=== PATIENT | female | born 1970 | race Caucasian/White ===

== ENCOUNTER 2017-03-15 17:02 | Emergency (ER) | payer BC ==
--- NOTE | 2017-03-15 17:27 | PDOC ---
Rapid Medical Evaluation Time Seen by Provider: 03/15/17 17:24 Medical Evaluation: Allergies Allergy/AdvReac Type Severity Reaction Status Date / Time aspirin Allergy Verified 03/15/17 17:25 ibuprofen Allergy Verified 03/15/17 17:25 03/15/17 17:25 I have performed a brief in-person evaluation of this patient. The patient presents with a chief complaint of: cough w/ pleuritic CP and SOB x 1 week. H/o HTN, former smoker Pertinent physical exam findings:stable w/ chest/lungs clear I have ordered the following:labs/cxr/ekg The patient will proceed to the ED for further evaluation. 03/15/17 17:28
[2017-03-15 17:29] VITALS: BP 131/83; PULSE 76; TEMP 97.9; BMI 48.1
[2017-03-15] MEDS ORDERED: ALBUTEROL SO4 0.083% IH SOL 2.5 MG/3 ML VIAL.NEB. NEB ONE ×4 (17:54→19:47)
--- NOTE | 2017-03-15 17:55 | PDOC ---
History of Present Illness - General History Source: Patient Exam Limitations: No Limitations - History of Present Illness Initial Comments: 03/15/17 18:17 The patient is a 47 year old female with a significant PMH of HTN and anemia who presents to the emergency department after being sent by Dr. Light with shortness of breath and a dry cough beginning approximately 1 week ago. The patient reports dyspnea with minimal exertion and a dry cough over the past week, both of which are aggravated by inspiration and alleviated by lying down. She reports her cough was productive last week for phlegm and some blood spotting. She notes receiving a CXR and 2 flu swabs over the past week by Dr. Ordoñez and Dr. Light, which all resulted negative. She was sent by Dr. Light today for rule out pneumonia. The patient denies chest pain, headache and dizziness. Denies fever, chills, nausea, vomit, diarrhea and constipation. Denies dysuria, frequency, urgency and hematuria. Allergies: NKA Past surgical history: Cholecystectomy. Left knee arthroscopy. Social history: Former smoker. No reported alcohol or drug use. PCP: Dr. Light ENT: Dr. Ordoñez <Blue Barker - Last Filed: 03/15/17 18:41> <Gilma Gill - Last Filed: 03/18/17 08:42> - General Chief Complaint: Shortness of Breath Stated Complaint: PCP SENT/SHORTNESS OF BREATH Time Seen by Provider: 03/15/17 17:24 Past History <Blue Barker - Last Filed: 03/15/17 18:41> - Past Medical History Anemia: Yes Asthma: No Cancer: No Cardiac Disorders: No CVA: No COPD: No CHF: No DVT: No Dementia: No Diabetes: No GI Disorders: No Disorders: Yes (H/O RENAL COLIC) HTN: Yes Hypercholesterolemia: No Liver Disease: No Seizures: No Thyroid Disease: No - Surgical History Abdominal Surgery: No Appendectomy: No Cardiac Surgery: No Cholecystectomy: Yes Lung Surgery: No Neurologic Surgery: No Orthopedic Surgery: Yes (arthroscopy left knee) - Immunization History Td Vaccination: Yes Immunization Up to Date: Yes - Suicide/Smoking/Psychosocial Hx Smoking Status: No Smoking History: Former smoker Years of Tobacco Use: 0 Have you smoked in the past 12 months: No Number of Cigarettes Smoked Daily: 0 If you are a former smoker, when did you quit?: 2000 Cigars Per Day: 0 Information on smoking cessation initiated: No Hx Alcohol Use: No Drug/Substance Use Hx: No Substance Use Type: None Hx Substance Use Treatment: No <Gilma Gill - Last Filed: 03/18/17 08:42> - Past Medical History Allergies/Adverse Reactions: Allergies Allergy/AdvReac Type Severity Reaction Status Date / Time aspirin Allergy Verified 03/15/17 17:25 ibuprofen Allergy Verified 03/15/17 17:25 Home Medications: Ambulatory Orders Guaifenesin AC [Robitussin AC] 10 ml PO Q8H #200 ml MDD 30mL 01/25/16 Prednisone [Deltasone -] 40 mg PO DAILY #8 tablet 03/15/17 Review of Systems - Review of Systems Able to Perform ROS?: Yes Comments:: 03/15/17 18:17 GENERAL/CONSTITUTIONAL: No fever or chills. No weakness. HEAD, EYES, EARS, NOSE AND THROAT: No change in vision. No ear pain or discharge. No sore throat. CARDIOVASCULAR: (+) Dyspnea with exertion. No chest pain or shortness of breath. RESPIRATORY: (+) Dry cough. No wheezing or hemoptysis. GASTROINTESTINAL: No nausea, vomiting, diarrhea or constipation. GENITOURINARY: No dysuria, frequency, or change in urination. MUSCULOSKELETAL: No joint or muscle swelling or pain. No neck or back pain. SKIN: No rash NEUROLOGIC: No headache, vertigo, loss of consciousness, or change in strength/ sensation. ENDOCRINE: No increased thirst. No abnormal weight change. HEMATOLOGIC/LYMPHATIC: No anemia, easy bleeding, or history of blood clots. ALLERGIC/IMMUNOLOGIC: No hives or skin allergy. <Blue Barker - Last Filed: 03/15/17 18:41> *Physical Exam - Vital Signs Last Vital Signs Temp Pulse Resp BP Pulse Ox 97.9 F 76 17 131/83 97 03/15/17 17:25 03/15/17 17:25 03/15/17 17:25 03/15/17 17:25 03/15/17 17:25 <Blue Barker - Last Filed: 03/15/17 18:41> - Vital Signs Last Vital Signs Temp Pulse Resp BP Pulse Ox 97.9 F 76 17 131/83 97 03/15/17 17:25 03/15/17 17:25 03/15/17 17:25 03/15/17 17:25 03/15/17 17:25 - Physical Exam Comments: GENERAL: Awake, alert, and fully oriented, in no acute distress HEAD: No signs of trauma. No sinus tenderness EYES: PERRLA, EOMI, sclera anicteric, conjunctiva clear ENT: Auricles normal inspection, hearing grossly normal, nares patent, oropharynx clear without exudates. Moist mucosa NECK: Normal ROM, supple, no lymphadenopathy, JVD, or masses LUNGS: Dec air entry B/L, scattered rhonchi R anterior lung parikh. Intermittent dry hacking cough. HEART: Regular rate and rhythm, normal S1 and S2, no murmurs, rubs or gallops ABDOMEN: Soft, nontender, normoactive bowel sounds. No guarding, no rebound. No masses EXTREMITIES: Normal range of motion, no edema. No clubbing or cyanosis. No cords, erythema, or tenderness NEUROLOGICAL: Cranial nerves II through XII grossly intact. Normal speech, normal gait SKIN: Warm, Dry, normal turgor, no rashes or lesions noted. <Gilma Gill - Last Filed: 03/18/17 08:42> Heart Score/ECG Review #1 03/15/17 18:41 Vent rate 76 bpm Normal sinus rhythm. Normal ECG. <Blue Barker - Last Filed: 03/15/17 18:41> ED Treatment Course - LABORATORY CBC & Chemistry Diagram: 03/15/17 18:00 03/15/17 18:00 - Medications Given in the ED: ED Medications Discontinued Medications Generic Name Dose Route Start Last Admin Trade Name Freq PRN Reason Stop Dose Admin Albuterol Sulfate 1 amp 03/15/17 17:54 03/15/17 18:06 Ventolin 0.083% Nebulizer Soln - NEB 03/15/17 17:55 1 amp ONCE ONE Administration <Blue Barker - Last Filed: 03/15/17 18:41> - LABORATORY CBC & Chemistry Diagram: 03/15/17 18:00 03/15/17 18:50 <Gilma Gill - Last Filed: 03/18/17 08:42> Medical Decision Making - Medical Decision Making 03/15/17 19:[address] Garcia at shift change. She was sent by Dr. Light for evaluation for recent cough and SOB, negative flu test and negative CXR as outpatient. CXR obtained in ED to r/o pna, no focal consolidation. Treated with nebs and steroids for symptoms, which are more consistent with viral URI. Awaiting CT chest without contrast to r/o occult pna. PE is unlikely based on clinical presentation, much more likely that this is related to URI, as she has significant chest and nasal congestion, post-nasal drip. Likely DC home. <Gilma Gill - Last Filed: 03/18/17 08:42> *DC/Admit/Observation/Transfer - Attestations Scribe Attestion: 03/15/17 18:17 Documentation prepared by Blue Barker, acting as durable medical equipment technician for Gilma Gill MD. <Blue Barker - Last Filed: 03/15/17 18:41> <Gilma Gill - Last Filed: 03/18/17 08:42> Diagnosis at time of Disposition: Cough - Discharge Dispostion Disposition: HOME - Prescriptions Prescriptions: Prednisone [Deltasone -] 40 mg PO DAILY #8 tablet - Referrals Referrals: Cuauhtemoc Light MD [Primary Care Provider] - - Patient Instructions Printed Discharge Instructions: DI for Cough -- Adult Additional Instructions: You were seen in the ER on recommendation of your primary care doctor. You had blood work and a chest XR as well as a CT of your chest. There is no sign of active infection/pneumonia at this time. You do have a nodule which requires follow up to make sure that it's not changing over time. Please call your doctor tomorrow for an appointment within the next few days. Take the prednisone (steroids) as prescribed and return to the ER if your symptoms are worsening. - Post Discharge Activity
[2017-03-15 18:12] LABS: BASO % 1.1 % (0-2.0); EOS % 3.2 % (0-4.5); HEMATOCRIT 38.3 % (32.4-45.2); HEMOGLOBIN 12.9 GM/dL (10.7-15.3); LYMPH % 28.3 % (8-40); MCH 26.6 pg (25.7-33.7); MCHC 33.6 g/dl (32.0-36.0); MEAN CELL VOLUME 79.1 fl (80-96); MEAN PLT VOLUME 8.1 fl (7.5-11.1); MONO % 7.9 % (3.8-10.2); NEUT % 59.5 % (42.8-82.8); PLATELET COUNT 322 K/MM3 (134-434); RBC 4.85 M/mm3 (3.60-5.2); RDW 14.3 % (11.6-15.6)
[2017-03-15] MEDS ORDERED: predniSONE 20 MG TABLET (UD) PO ONE (19:03)
[2017-03-15 19:21] LABS: ALBUMIN 3.6 g/dl (3.4-5.0); ALK PHOS 77 U/L (45-117); ANION GAP 10 (8-16); BILIRUBIN,TOTAL 0.6 mg/dL (0.2-1.0); BLOOD UREA NITROGEN 10 mg/dL (7-18); CHLORIDE 105 mmol/L (98-107); CO2 25 mmol/L (21-32); CREATININE 0.6 mg/dL (0.55-1.02); GLUCOSE,RANDOM 90 mg/dL (74-106); POTASSIUM 3.9 mmol/L (3.5-5.1); SGOT/AST 17 U/L (15-37); SGPT/ALT 29 U/L (12-78); SODIUM 140 mmol/L (136-145); TOT PROT 7.8 g/dl (6.4-8.2)
--- NOTE | 2017-03-15 19:23 | PDOC ---
*Physical Exam - Vital Signs Last Vital Signs Temp Pulse Resp BP Pulse Ox 97.9 F 76 17 131/83 97 03/15/17 17:25 03/15/17 17:25 03/15/17 17:25 03/15/17 17:25 03/15/17 17:25 ED Treatment Course - LABORATORY CBC & Chemistry Diagram: 03/15/17 18:00 03/15/17 18:50 - ADDITIONAL ORDERS Additional order review: Laboratory Results 03/15/17 18:00 Sodium Cancelled Potassium Cancelled Chloride Cancelled Carbon Dioxide Cancelled Anion Gap Cancelled BUN Cancelled Creatinine Cancelled Creat Clearance w eGFR Cancelled Random Glucose Cancelled Calcium Cancelled Total Bilirubin Cancelled AST Cancelled ALT Cancelled Alkaline Phosphatase Cancelled Total Protein Cancelled Albumin Cancelled 03/15/17 18:00 RBC 4.85 MCV 79.1 L MCHC 33.6 RDW 14.3 MPV 8.1 Neutrophils % 59.5 Lymphocytes % 28.3 D Monocytes % 7.9 Eosinophils % 3.2 D Basophils % 1.1 - Medications Given in the ED: ED Medications Discontinued Medications Generic Name Dose Route Start Last Admin Trade Name Freq PRN Reason Stop Dose Admin Albuterol Sulfate 1 amp 03/15/17 17:54 03/15/17 18:06 Ventolin 0.083% Nebulizer Soln - NEB 03/15/17 17:55 1 amp ONCE ONE Administration Medical Decision Making - Medical Decision Making 03/15/17 21:19 Assumed care of Ms Bess at 7pm from Dr. Gill, pending results of CT chest. CT chest with nodule that requires f/u but no other acute findings. Will dc home with PMD f/u within next few days. Overall, sounds like a URI which pt is likely recovering from based on time course. Advised to return if sxs worsen, f/u wtih PMD. She was informed of the nodule and the need for f/u regarding the finding. *DC/Admit/Observation/Transfer Diagnosis at time of Disposition: Cough - Discharge Dispostion Disposition: HOME Admit: No - Prescriptions Prescriptions: Prednisone [Deltasone -] 40 mg PO DAILY #8 tablet - Referrals Referrals: Cuauhtemoc Light MD [Primary Care Provider] - - Patient Instructions Printed Discharge Instructions: DI for Cough -- Adult Additional Instructions: You were seen in the ER on recommendation of your primary care doctor. You had blood work and a chest XR as well as a CT of your chest. There is no sign of active infection/pneumonia at this time. You do have a nodule which requires follow up to make sure that it's not changing over time. Please call your doctor tomorrow for an appointment within the next few days. Take the prednisone (steroids) as prescribed and return to the ER if your symptoms are worsening. - Post Discharge Activity
[2017-03-15] MEDS ORDERED: predniSONE 20 MG TABLET (UD) ONE (19:47)
--- NOTE | 2017-03-16 11:02 | EKG ---
Test Reason : Blood Pressure : / mmHG Vent. Rate : 076 BPM Atrial Rate : 076 BPM P-R Int : 142 ms QRS Dur : 090 ms QT Int : 390 ms P-R-T Axes : -04 023 033 degrees QTc Int : 438 ms POOR DATA QUALITY, INTERPRETATION MAY BE ADVERSELY AFFECTED NORMAL SINUS RHYTHM NORMAL ECG WHEN COMPARED WITH ECG OF 15-MAR-2017 18:08, PREVIOUS ECG HAS UNDETERMINED RHYTHM, NEEDS REVIEW Confirmed by CHRISTELLE WU, BRAN ([id number]) on 03/16/2017 11:02:36 AM Referred By: Confirmed By:BRAN BOURGEOIS MD
== END 2017-03-15 21:51 | disposition home or self-care (01) ==
LOC: JER 17:02
PROC: 3E0F7GC Introduction of Other Therapeutic Substance into Respiratory Tract, Via Natural or Artificial Opening (ICD-10-PCS; principal; 2017-03-15)
DX: R05 Cough (principal)
CPT/HCPCS: 36415; 71046-TC; 71250-TC; 80053; 85025; 93005; 93010; 99282-25

== ENCOUNTER 2017-10-31 06:06 | Inpatient (IN) | payer BC ==
[2017-10-30 09:01] VITALS: BMI 47.6
[2017-10-31] MEDS ORDERED: DEXAMETHASONE SOD PHOSPHATE 4 MG/1 ML VIAL ONE (07:20)
[2017-10-31] MEDS ORDERED: PROPOFOL 20 ML ONE ×2 (07:20→09:17)
[2017-10-31] MEDS ORDERED: ROCURONIUM BROMIDE 50 MG/5 ML VIAL ONE ×2 (07:20→09:18)
[2017-10-31] MEDS ORDERED: fentaNYL CITRATE 250 MCG/5 ML VIAL ONE (07:20)
[2017-10-31] MEDS ORDERED: LIDOCAINE HCL/PF 2% SDV 5ML VIAL ONE (07:20)
[2017-10-31] MEDS ORDERED: SUCCINYLCHOLINE CHLORIDE 200 MG/10 ML VIAL ONE (07:20)
--- NOTE | 2017-10-31 08:06 | HP ---
Admitting History and Physical - Admission Chief Complaint: Morbid obesity History Source: Patient Limitations to Obtaining History: No Limitations - Past Medical History ...LMP: 08/17/12 ...LMP Comment: partial hysterectomy 2012 - Past Surgical History Past Surgical History: Yes: Cholecystectomy, , Hysterectomy Additional Past Surgical History: Meniscus repair - Smoking History Smoking history: Former smoker Have you smoked in the past 12 months: No Aproximately how many cigarettes per day: 0 If you are a former smoker, when did you quit?: 1999 - Alcohol/Substance Use Hx Alcohol Use: No Home Medications - Allergies Allergies/Adverse Reactions: Allergies Allergy/AdvReac Type Severity Reaction Status Date / Time aspirin Allergy "hives,tingling,itchy Verified 10/31/17 06:43 palms" ibuprofen Allergy "generalized Verified 10/31/17 06:43 itchyness-inside" - Home Medications Home Medications: Ambulatory Orders NK [No Known Home Medication] 10/30/17 Family Disease History - Family Disease History Family History: Unremarkable Review of Systems - Review of Systems Constitutional: denies: Chills, Fever HENT: reports: No Symptoms Neck: reports: No Symptoms Gastrointestinal: reports: No Symptoms Genitourinary: reports: No Symptoms Neurological: reports: No Symptoms Pain Intensity: 0 Physical Examination Vital Signs: Vital Signs Temperature 98.0 F 10/31/17 06:31 Pulse Rate 96 H 10/31/17 06:31 Respiratory Rate 16 10/31/17 06:31 Blood Pressure 131/87 10/31/17 06:31 O2 Sat by Pulse Oximetry (%) 97 10/31/17 06:30 Constitutional: Yes: Calm Neck: Yes: WNL Cardiovascular: Yes: WNL Respiratory: Yes: WNL Gastrointestinal: Yes: Soft, Abdomen, Obese Neurological: Yes: WNL, Alert, Oriented Problem List - Problems (1) Morbid obesity due to excess calories Code(s): E66.01 - MORBID (SEVERE) OBESITY DUE TO EXCESS CALORIES (2) BMI 45.0-49.9, adult Code(s): Z68.42 - BODY MASS INDEX (BMI) 45.0-49.9, ADULT Assessment/Plan Morbid obesity Laparoscopic possible open vertical sleeve gastrectomy
[2017-10-31] MEDS ORDERED: ceFAZolin SODIUM 1 GM VIAL ONE (08:24)
[2017-10-31] MEDS ORDERED: PROMETHAZINE HCL 25 MG/1 ML VIAL IVPUSH PRN (08:25)
[2017-10-31] MEDS ORDERED: BUPIVACAINE HCL/PF 0.25% (2.5MG/ML) 10 ML VIAL IJ ONE ×2 (09:05)
[2017-10-31] MEDS ORDERED: NEOSTIGMINE METHYLSULFATE 0.5 MG/ML - 10 ML MDV ONE (10:02)
[2017-10-31] MEDS ORDERED: GLYCOPYRROLATE 0.2 MG/1 ML VIAL ONE (10:02)
[2017-10-31] MEDS ORDERED: oxyCODONE HCL 5 MG TABLET PO PRN (10:08)
[2017-10-31] MEDS ORDERED: SODIUM CHLORIDE 1,000 ML IV SCH ×2 (10:15→10:30)
--- NOTE | 2017-10-31 10:16 | OP ---
Operative Note - Note: Operative Date: 10/31/17 Pre-Operative Diagnosis: Morbid obesity. BMi 47.6 Operation: Laparoscopic vertical sleeve gastrectomy, lysis of adhesions, wedge liver biopsy, EGD Post-Operative Diagnosis: Other (Morbid obesity, BMI 47.6, hepatomegaly) Surgeon: Tani Khan Painter Shipyard: Sabi Black Anesthesia: General Specimens Removed: Greater curvature of the stomach. Liver biopsy Estimated Blood Loss (mls): 30 Drains & Tubes with Location: 36 Fr Bougie Operative Report Dictated: Yes
[2017-10-31] MEDS ORDERED: morphine SULFATE 4 MG/ML VIAL IVPUSH PRN (10:30)
[2017-10-31] MEDS: ACETAMINOPHEN 1000 MG/100 ML VIAL (NON FORMULARY) IVPB SCH ×3 (10:38→22:36)
[2017-10-31] MEDS ORDERED: ACETAMINOPHEN INJECTION 100 ML IVPB ONE (10:38)
[2017-10-31] MEDS ORDERED: FAMOTIDINE 20 MG/50 ML IVPB 20 MG/50 ML MG IVPB ONE (10:39)
--- NOTE | 2017-10-31 10:41 | SURG ---
Surgery Insurance Verification Clerk Note Insurance Verification Clerk: Sabi Black PA-C Date of Service: 10/31/17 Diagnosis: Morbid obesity. BMi 47.6 Procedure: Laparoscopic vertical sleeve gastrectomy, lysis of adhesions, wedge liver biopsy, EGD I was present for the entirety of the operative procedure. For further detail, please refer to operative report. Visit type - Case Type Case Type: Scheduled - Emergency Emergency Visit: No - New patient This patient is new to me today: Yes Date on this admission: 10/31/17
[2017-10-31] MEDS: ONDANSETRON 4 MG/2 ML VIAL IVPUSH SCH ×4 (10:45→22:36)
[2017-10-31] MEDS: METOCLOPRAMIDE HCL INJECTION 10 MG/2 ML VIAL IVPUSH SCH ×3 (10:50→22:36)
[2017-10-31] MEDS ORDERED: FAMOTIDINE 20 MG PREMIXED IVPB IVPB ONE (11:00)
[2017-10-31] MEDS: FAMOTIDINE 20 MG/50 ML IVPB 20 MG/50 ML MG IVPB SCH (11:00)
--- NOTE | 2017-10-31 11:01 | SPEC ---
DATE OF OPERATION: 10/31/2017 SURGEON: Yue Khan MD DISPATCHER [employer]: KUSHAL Middleton, and Vicky Gastelum. PREOPERATIVE DIAGNOSES: 1. Morbid obesity. 2. Body mass index 47.6. POSTOPERATIVE DIAGNOSES: 1. Morbid obesity. 2. Body mass index 47.6. 3. Hepatomegaly. 4. Intraabdominal adhesions. PROCEDURES: 1. Diagnostic laparoscopy. 2. Laparoscopic vertical sleeve gastrectomy. 3. Laparoscopic lysis of adhesions. 4. Laparoscopic wedge liver biopsy. 5. Esophagogastroduodenoscopy. SPECIMENS: 1. Greater curvature of the stomach. 2. Liver biopsy. ESTIMATED BLOOD LOSS: 30 mL. DRAINS: None. ANESTHESIA: GET. BOUGIE: Size 36-Slovak. REASON FOR PROCEDURE: This is a 47-year-old female who presented for weight loss options. After describing different options, she decided to proceed with a laparoscopic, possible open vertical sleeve gastrectomy with possible liver biopsy and upper EGD. The patient was seen by the respective subspecialties and cleared for surgery. The risks and benefits of the procedure were explained. These included bleeding, infection, hernia, AR, DVT, PE, injury to surrounding structures including the liver, colon, bowel, spleen, esophagus, vessel injury, nerve injury, weight regain, gastric leak, staple line leak, sleeve leak, obstruction, vitamin deficiency, hair loss and as some of the possible complications. The patient understood and signed informed consent. DESCRIPTION OF PROCEDURE: The patient was placed supine on the operating room table. The patient underwent general endotracheal intubation. The arms were brought out at 90 degrees and secured. A footboard was placed and the legs were secured laterally with padding. The abdomen was prepped and draped in the usual sterile fashion. A timeout was performed. At the beginning of the case there were noted to be intraabdominal adhesions that were obscuring the field of view. This was from the omentum to the anterior abdominal wall. Carefully, these adhesions were taken down using a LigaSure device. Once this was done, the remainder of the procedure was continued. An incision was made in the left upper quadrant and a Veress needle inserted. Pneumoperitoneum was established. Subsequently, the Veress needle was removed and a 5-mm trocar was placed under direct visualization with the laparoscope. The laparoscopic camera was then inserted and inspection of the abdominal cavity was performed. An incision was then made in the supraumbilical area and a 15-mm trocar was placed under direct visualization. A 5-mm trocar was then placed in the right upper quadrant and a 5-mm trocar was placed below the left subcostal margin. A stab wound was made in the subxiphoid area and a Esperanza clamp inserted and removed to dilate the tract. A Andie liver retractor was inserted. The post was secured at the bedside by the nursing staff. The patient was placed in steep reverse Trendelenburg position and the Andie liver retractor was used to secure the liver towards the anterior abdominal wall. The pylorus was identified and 6 cm proximal to it, the lesser sac was entered using the LigaSure device. All lateral attachments to the greater curvature of the stomach, including the short gastric vessels, were ligated using the LigaSure device toward the gastrosplenic and gastrophrenic ligaments. Once this was done in its entirety, it was confirmed that all tubes within the nasal or oropharyngeal cavity, including a temperature probe, was removed by Anesthesia. The bougie was then inserted by Anesthesia. Transection of the stomach was then begun staying adjacent to the bougie but away from the angularis. Transection of the stomach was performed near the portion of the stomach where the lesser sac was entered. Two laparoscopic Endo-MARIO black kaity were used at this location. Laparoscopic Endo MARIO purple staple loads were then used for the remainder of the transection until the greater curvature of the stomach was fully transected. This was done staying close to the bougie. Care was taken to stay away from the angle of His cephalad. The staple line was then inspected. Hemostasis was identified. A leak test was then performed. It was clamped distally to the staple line. Irrigation solution was placed in the left upper quadrant and air was insufflated by Anesthesia into the sleeve. No leaks were identified. No obstruction was identified. This was done through the entirety of the staple line. In addition, an upper endoscopy was performed. The endoscope was placed into the patients mouth and the entirety of the esophagus, GE junction, gastric pouch and staple line were inspected. No obstruction or leak was noted. The stomach was suctioned and the endoscope removed fully intact. At this point, the irrigation solution was suctioned and again, hemostasis was noted. A wedge liver biopsy was then performed. The left lobe of the liver was identified and a portion of the edge was grasped. Using electrocautery, a wedge of the liver was excised. This was removed and sent off the field as specimen. Hemostasis at the site of the wedge liver biopsy was attained using electrocautery. The 15-mm supraumbilical trocar was then removed and the greater curvature specimen removed from the site using a sponge stick cutler. The specimen was inspected and a Veress needle inserted. The specimen insufflated adequately and no leak was identified. The staple line was noted to be intact. A Mahesh-Za device was then used to close the fascia with a 0 Vicryl suture at the site. Again, hemostasis was noted. The Andie liver retractor was then removed under direct visualization. Pneumoperitoneum was desufflated and the fascial sutures were secured. Hemostasis was noted at all incision sites and Marcaine was injected at all incision sites. All incision sites were closed using 4-0 Biosyn. Sterile dressings were applied. The patient tolerated the procedure well and was transferred to the recovery room in stable condition. The patient was transferred to telemetry for further monitoring. YUE KHAN M.D. [id number]
[2017-10-31 11:13] LABS: HEMOGLOBIN 13.5 GM/dL (10.7-15.3); MCHC 33.7 g/dl (32.0-36.0); MEAN CELL VOLUME 83.1 fl (80-96); MEAN PLT VOLUME 8.6 fl (7.5-11.1); PLATELET COUNT 237 K/MM3 (134-434); RBC 4.81 M/mm3 (3.60-5.2); RDW 14.3 % (11.6-15.6); WHITE BLOOD COUNT 8.1 K/mm3 (4.0-10.0)
[2017-10-31 11:33] LABS: ALBUMIN 3.8 g/dl (3.4-5.0); ANION GAP 12 MMOL/L (8-16); BLOOD UREA NITROGEN 15 mg/dL (7-18); CALCIUM 7.9 mg/dL (8.5-10.1); CHLORIDE 109 mmol/L (98-107); CO2 19 mmol/L (21-32); GLUCOSE,RANDOM 140 mg/dL (74-106); POTASSIUM 4.4 mmol/L (3.5-5.1); SODIUM 140 mmol/L (136-145)
[2017-10-31 11:36] LABS: ALK PHOS 68 U/L (45-117); BILIRUBIN,TOTAL 1.1 mg/dL (0.2-1); CREATININE 0.6 mg/dL (0.55-1.3); SGOT/AST 30 U/L (15-37); SGPT/ALT 37 U/L (13-61); TOT PROT 7.1 g/dl (6.4-8.2)
[2017-10-31] MEDS ORDERED: hydrALAZINE HCL 20 MG/ML VIAL ONE (12:09)
[2017-10-31] MEDS: SODIUM CHLORIDE 1,000 ML IV SCH ×2 (13:24→13:30)
[2017-10-31] MEDS: ENOXAPARIN NA (PORCINE) 40 MG/0.4 ML DISP.SYRIN SQ SCH (21:44)
[2017-11-01] MEDS: ONDANSETRON 4 MG/2 ML VIAL IVPUSH SCH ×4 (03:40→16:08)
[2017-11-01] MEDS: ACETAMINOPHEN 1000 MG/100 ML VIAL (NON FORMULARY) IVPB SCH (04:04)
[2017-11-01] MEDS: METOCLOPRAMIDE HCL INJECTION 10 MG/2 ML VIAL IVPUSH SCH ×2 (04:33→12:01)
[2017-11-01 07:07] LABS: HEMATOCRIT 35.1 % (32.4-45.2); HEMOGLOBIN 11.9 GM/dL (10.7-15.3); MCH 27.8 pg (25.7-33.7); MCHC 33.8 g/dl (32.0-36.0); MEAN PLT VOLUME 8.4 fl (7.5-11.1); PLATELET COUNT 288 K/MM3 (134-434); RBC 4.28 M/mm3 (3.60-5.2); RDW 14.9 % (11.6-15.6); WHITE BLOOD COUNT 12.1 K/mm3 (4.0-10.0)
[2017-11-01 07:40] LABS: ALBUMIN 3.3 g/dl (3.4-5.0); ANION GAP 7 MMOL/L (8-16); BLOOD UREA NITROGEN 6 mg/dL (7-18); CALCIUM 8.2 mg/dL (8.5-10.1); CHLORIDE 108 mmol/L (98-107); CO2 24 mmol/L (21-32); CREATININE 0.6 mg/dL (0.55-1.3); GLUCOSE,RANDOM 104 mg/dL (74-106); POTASSIUM 3.7 mmol/L (3.5-5.1); SGOT/AST 31 U/L (15-37); SGPT/ALT 44 U/L (13-61); SODIUM 139 mmol/L (136-145)
[2017-11-01 07:42] LABS: ALK PHOS 63 U/L (45-117); BILIRUBIN,TOTAL 1.1 mg/dL (0.2-1); TOT PROT 6.5 g/dl (6.4-8.2)
[2017-11-01] MEDS: FAMOTIDINE 20 MG/50 ML IVPB 20 MG/50 ML MG IVPB SCH (09:09)
[2017-11-01] MEDS: ENOXAPARIN NA (PORCINE) 40 MG/0.4 ML DISP.SYRIN SQ SCH (09:09)
--- NOTE | 2017-11-01 09:29 | PN ---
Progress Note (short form) - Note Progress Note: POD#1 Pt withtout complints of CP/SOB. No nausea overnight, she was oob and ambulated twice. Minimal abdominal pain. Vital Signs Period Temp Pulse Resp BP Sys/Medina Pulse Ox Last 24 Hr 97.8 F-99.0 F 71-100 14-28 129-184/72-95 95-96 GEN: appears comfortable CV: RR mild tachycardia Lungs: CTA bl anteriorly ABD: soft, non-distended, inc tenderness. Inc c/d/i LE: no calf tenderness or swelling noted b/l. CBC, BMP 11/01/17 06:30 11/01/17 06:30 Laboratory Tests 10/31/17 11:00 Hgb 13.5 Hct 40.0 <Sabi Black - Last Filed: 11/01/17 09:42> - Note Progress Note: Agree POD 1 Pain controlled No nausea AVSS Abd soft UGI: no leak/obstruction Clears Discharge home <Tani Khan - Last Filed: 11/01/17 14:44> Problem List - Problems (1) Morbid obesity due to excess calories Assessment/Plan: s/p lap vertical sleeve gastrectomy, POD#1 UGI today if negative may begin bariatric diet for POD#1 DVT ppx with ambulation/SCDs and lovenox Continue oob/ambulate Code(s): E66.01 - MORBID (SEVERE) OBESITY DUE TO EXCESS CALORIES <Sabi Black - Last Filed: 11/01/17 09:42> - Problems (1) Morbid obesity due to excess calories Code(s): E66.01 - MORBID (SEVERE) OBESITY DUE TO EXCESS CALORIES (2) BMI 45.0-49.9, adult Code(s): Z68.42 - BODY MASS INDEX (BMI) 45.0-49.9, ADULT <Tani Khan - Last Filed: 11/01/17 14:44>
--- NOTE | 2017-11-01 09:41 | PN ---
Progress Note (short form) - Note Progress Note: Post op day#1.S/P Gastric sleeve placement under Ga uneventful.Patient stable.No any anesthesia related promlem.Patient dc from the anesthesia care.
[2017-11-01] MEDS ORDERED: oxyCODONE HCL 5 MG TABLET PO PRN (09:55)
[2017-11-01] MEDS ORDERED: SODIUM CHLORIDE 1,000 ML IV SCH (10:00)
[2017-11-01 13:36] VITALS: BP 146/89; PULSE 80; TEMP 98.6
--- NOTE | 2017-11-06 09:40 | PATH ---
Surgical Pathology Report Patient Name: NIOCLA LANDERS [facility]. Rec. #: [id number] /Age/Gender: 1970 (Age: 47) / F Account: [id number] Location: 4 W TELEMETRY U Taken: 10/31/2017 Received: 10/31/2017 Reported: 11/06/2017 Physicians: Tani Khan M.D. Specimen(s) Received A: LIVER BIOPSY B: GREATER CURVATURE STOMACH Clinical History Morbid obesity Final Diagnosis A. LIVER, BIOPSY: LIVER TISSUE WITH MILD INCREASED GLYCOGENATED NUCLEI. NO INCREASE IN FIBROSIS (TRICHROME STAIN). RETICULIN STAIN SHOWS AN INTACT SINUSOIDAL ARCHITECTURE. SCATTERED IRON DEPOSITION IDENTIFIED, PREDOMINANTLY IN KUPFFER CELLS. NEGATIVE FOR CHOLESTASIS, CHOLANGITIS/BILE DUCT INJURY, GRANULOMAS, OR MALIGNANCY. COMMENT: INCREASED NUMBERS OF GLYCOGENATED NUCLEI CAN BE SEEN IN HAYDEE'S DISEASE, FATTY LIVER DISEASE, DIABETES MELLITUS, PROLONGED CONGESTIVE HEART FAILURE, AND SOME OTHER DISORDERS. PAS WITH DIASTASE STAIN SHOWS SCATTERED ROUND TO OVAL CYTOPLASMIC EOSINOPHILIC GLOBULAR INCLUSIONS IN HEPATOCYTES, CLINICAL CORRELATION TO RULE OUT [id number] DEFICIENCY IS SUGGESTED. B. GREATER CURVATURE STOMACH, LAPAROSCOPIC VERTICAL SLEEVE GASTRECTOMY: SEGMENT OF STOMACH SHOWING MILD CHRONIC GASTRITIS. IMMUNOSTAINING IS NEGATIVE FOR H. PYLORI ORGANISMS. Electronically Signed Francesca Campos M.D. Gross Description A. Received in formalin labeled "liver biopsy," is a 3.8 x 1.7 x 1.0 cm portion of vo soft tissue, consistent with a liver biopsy. Electronics Research Engineer sections are submitted in one cassette. B. Received in formalin, labeled "greater curvature of stomach," is a 95 gram, 20.5 x 3.0 x 2.6 cm. portion of stomach with a stapled margin of resection. The serosa is vo-white with minimal attached fat. The mucosa is vo-pink with normal folds. No mucosal masses are identified. Electronics Research Engineer sections are submitted in one cassette. /10/31/201710/31/2017
== END 2017-11-01 16:14 | disposition home or self-care (01) | DRG 621 ==
LOC: JSAMEDAYSX 06:06 → J4W 13:42
PROVIDERS: ADMIT Surgery; ATTEND Surgery
PROC: 0DJ08ZZ Inspection of Upper Intestinal Tract, Via Natural or Artificial Opening Endoscopic (ICD-10-PCS; 2017-10-31)
PROC: 0DB64Z3 Excision of Stomach, Percutaneous Endoscopic Approach, Vertical (ICD-10-PCS; principal; 2017-10-31 08:00)
PROC: 0DNW4ZZ Release Peritoneum, Percutaneous Endoscopic Approach (ICD-10-PCS; 2017-10-31 08:00)
PROC: 0FB24ZX Excision of Left Lobe Liver, Percutaneous Endoscopic Approach, Diagnostic (ICD-10-PCS; 2017-10-31 08:00)
DX: E66.01 Morbid (severe) obesity due to excess calories (principal); Z68.42 Body mass index [BMI] 45.0-49.9, adult; R16.0 Hepatomegaly, not elsewhere classified; K66.0 Peritoneal adhesions (postprocedural) (postinfection)
CPT/HCPCS: 36415; 74241-TC-FY; 80053; 85027; 88305-TC; 94010; 94760; J0131; J7030

== ENCOUNTER 2017-11-02 03:17 | Emergency (ER) | payer BC ==
[2017-11-02 04:01] VITALS: BMI 36.6
--- NOTE | 2017-11-02 05:19 | PDOC ---
History of Present Illness - General Chief Complaint: Pain, Acute Stated Complaint: RIGHT ARM PAIN Time Seen by Provider: 11/02/17 04:43 History Source: Patient - History of Present Illness Initial Comments: 11/02/17 06:29 47 year old female with right arm pain s/p gastric sleeve two days ago. reports that IV was placed on the right hand during the hospital stay. pain radiating up the arm. denies increase in surgical site pain. denies nausea/vomiting, urinary symptoms. Past History - Past Medical History Allergies/Adverse Reactions: Allergies Allergy/AdvReac Type Severity Reaction Status Date / Time aspirin Allergy "hives,tingling,itchy Verified 11/02/17 03:59 palms" ibuprofen Allergy "generalized Verified 11/02/17 03:59 itchyness-inside" Home Medications: Ambulatory Orders Famotidine [Pepcid] 20 mg PO BID #60 tablet 10/31/17 Oxycodone HCl/Acetaminophen [Percocet 5-325 mg Tablet] 1 - 2 tab PO Q6H #28 tab MDD 4 10/31/17 Anemia: No Asthma: No Cancer: No Cardiac Disorders: No CVA: No COPD: No CHF: No DVT: No Dementia: No Diabetes: No GI Disorders: No Disorders: Yes (H/O RENAL COLIC/stones) HTN: No Hypercholesterolemia: No Liver Disease: No Seizures: No Thyroid Disease: No - Surgical History Abdominal Surgery: No Appendectomy: No Cardiac Surgery: No Cholecystectomy: Yes Lung Surgery: No Neurologic Surgery: No Orthopedic Surgery: Yes (arthroscopy left knee) - Immunization History Td Vaccination: Yes Immunization Up to Date: Yes - Suicide/Smoking/Psychosocial Hx Smoking Status: No Smoking History: Unknown if ever smoked Years of Tobacco Use: 0 Have you smoked in the past 12 months: No Number of Cigarettes Smoked Daily: 0 If you are a former smoker, when did you quit?: 2000 Cigars Per Day: 0 Information on smoking cessation initiated: No Hx Alcohol Use: No Drug/Substance Use Hx: No Substance Use Type: None Hx Substance Use Treatment: No *Physical Exam - Vital Signs Last Vital Signs Temp Pulse Resp BP Pulse Ox 100.0 F H 121 H 20 122/85 93 L 11/02/17 03:20 11/02/17 03:20 11/02/17 03:20 11/02/17 03:20 11/02/17 03:20 - Physical Exam General Appearance: Yes: Appropriately Dressed Respiratory/Chest: positive: Lungs Clear, Normal Breath Sounds Cardiovascular: positive: Regular Rhythm, Regular Rate, Tachycardia Gastrointestinal/Abdominal: positive: Normal Bowel Sounds, Soft, Other ( surgical site clean dry and intact) Musculoskeletal: positive: Normal Inspection. negative: CVA Tenderness Extremity: positive: Normal Inspection, Normal Range of Motion Integumentary: positive: Normal Color, Dry, Warm, Other (warmth to both arms, no streaking noted . ). negative: Erythema Neurologic: positive: Fully Oriented, Alert, Normal Mood/Affect ED Treatment Course - LABORATORY CBC & Chemistry Diagram: 11/02/17 06:00 11/02/17 06:00 Medical Decision Making - Medical Decision Making 11/02/17 06:50 A: post op fever P: labs lactic acid chest xray US of right arm r/o DVT *DC/Admit/Observation/Transfer Diagnosis at time of Disposition: Pain in right arm, Atelectasis, Post-operative state - Discharge Dispostion Disposition: HOME Condition at time of disposition: Stable - Referrals Referrals: Tani Khan MD [Staff Physician] - Cuauhtemoc Light MD [Primary Care Provider] - 1 week - Patient Instructions Printed Discharge Instructions: DI for Arm Pain Additional Instructions: -Do deep breathing and coughing to prevent post-operative pneumonia -Follow up with Dr. Light and Dr. Khan as needed -Return for worsening arm pain, fever, redness of the arm, or any other concerning symptoms - Post Discharge Activity
[2017-11-02] MEDS ORDERED: SODIUM CHLORIDE 1,000 ML IV STA (05:30)
[2017-11-02 06:11] LABS: URINE APPEARANCE CLEAR; URINE BILIRUBIN NEGATIVE (<2.0 mg/dL); URINE COLOR YELLOW; URINE GLUCOSE (UA) NEGATIVE (NEGATIVE); URINE KETONE 2+ (NEGATIVE); URINE LEUK ESTERASE NEGATIVE (NEGATIVE); URINE NITRITE NEGATIVE (NEGATIVE); URINE PROTEIN NEGATIVE (NEGATIVE); URINE UROBILINOGEN NEGATIVE mg/dL (0.2-1.0)
[2017-11-02 06:17] LABS: BASO % 0.9 % (0-2.0); EOS % 4.5 % (0-4.5); HEMATOCRIT 34.4 % (32.4-45.2); LYMPH % 9.4 % (8-40); MCH 28.3 pg (25.7-33.7); MCHC 34.7 g/dl (32.0-36.0); MEAN CELL VOLUME 81.4 fl (80-96); MEAN PLT VOLUME 8.4 fl (7.5-11.1); MONO % 7.6 % (3.8-10.2); NEUT % 77.6 % (42.8-82.8); PLATELET COUNT 253 K/MM3 (134-434); RBC 4.23 M/mm3 (3.60-5.2); RDW 14.7 % (11.6-15.6); WHITE BLOOD COUNT 9.1 K/mm3 (4.0-10.0)
[2017-11-02 06:19] LABS: VENOUS PC02 37.7 mmHg (38-52); VENOUS PH 7.34 (7.32-7.42); VENOUS PO2 51.3 mmHg (28-48)
[2017-11-02] MEDS ORDERED: ACETAMINOPHEN 1000 MG/100 ML VIAL (NON FORMULARY) IVPB ONE (06:28)
[2017-11-02] MEDS ORDERED: ACETAMINOPHEN INJECTION 100 ML IVPB ONE (06:36)
[2017-11-02 06:45] LABS: ALBUMIN 3.6 g/dl (3.4-5.0); ANION GAP 10 MMOL/L (8-16); BILIRUBIN,TOTAL 1.3 mg/dL (0.2-1); BLOOD UREA NITROGEN 5 mg/dL (7-18); CALCIUM 8.8 mg/dL (8.5-10.1); CHLORIDE 108 mmol/L (98-107); CO2 21 mmol/L (21-32); CREATININE 0.4 mg/dL (0.55-1.3); GLUCOSE,RANDOM 95 mg/dL (74-106); POTASSIUM 3.7 mmol/L (3.5-5.1); SGOT/AST 30 U/L (15-37); SGPT/ALT 47 U/L (13-61); SODIUM 139 mmol/L (136-145); TOT PROT 6.9 g/dl (6.4-8.2)
[2017-11-02 06:46] LABS: ALK PHOS 68 U/L (45-117)
[2017-11-02 06:47] LABS: INR 1.2 (0.83-1.09); PROTHROMBIN TIME (PATIENT) 13.6 SEC (9.7-13.0)
[2017-11-02 06:50] LABS: ACTIVATED PTT 53.4 SECONDS (25.2-36.5)
[2017-11-02 07:07] VITALS: TEMP 98.5
--- NOTE | 2017-11-02 07:51 | PDOC ---
*Physical Exam - Vital Signs Last Vital Signs Temp Pulse Resp BP Pulse Ox 98.5 F 121 H 20 122/85 93 L 11/02/17 07:07 11/02/17 03:20 11/02/17 03:20 11/02/17 03:20 11/02/17 03:20 ED Treatment Course - LABORATORY CBC & Chemistry Diagram: 11/02/17 06:00 11/02/17 06:00 - ADDITIONAL ORDERS Additional order review: Laboratory Results 11/02/17 11/02/17 11/02/17 06:00 06:00 06:00 PT with INR INR PTT (Actin FS) VBG pH POC VBG pCO2 POC VBG pO2 Mixed VBG HCO3 Sodium 139 Potassium 3.7 Chloride 108 H Carbon Dioxide 21 Anion Gap 10 BUN 5 L Creatinine 0.4 L Creat Clearance w eGFR > 60 Random Glucose 95 Lactic Acid 1.0 Calcium 8.8 Total Bilirubin 1.3 H AST 30 ALT 47 Alkaline Phosphatase 68 Troponin I < 0.02 Total Protein 6.9 Albumin 3.6 Urine Color Urine Appearance Urine pH Ur Specific [place] Urine Protein Urine Glucose (UA) Urine Ketones Urine Blood Urine Nitrite Urine Bilirubin Urine Urobilinogen Ur Leukocyte Esterase 11/02/17 11/02/17 11/02/17 06:00 06:00 05:54 PT with INR 13.60 H INR 1.20 H PTT (Actin FS) 53.4 H VBG pH 7.34 POC VBG pCO2 37.7 L POC VBG pO2 51.3 H Mixed VBG HCO3 19.6 Sodium Potassium Chloride Carbon Dioxide Anion Gap BUN Creatinine Creat Clearance w eGFR Random Glucose Lactic Acid Calcium Total Bilirubin AST ALT Alkaline Phosphatase Troponin I Total Protein Albumin Urine Color Yellow Urine Appearance Clear Urine pH 6.0 Ur Specific [place] 1.013 Urine Protein Negative Urine Glucose (UA) Negative Urine Ketones 2+ H Urine Blood Negative Urine Nitrite Negative Urine Bilirubin Negative Urine Urobilinogen Negative Ur Leukocyte Esterase Negative 11/02/17 06:00 RBC 4.23 MCV 81.4 MCHC 34.7 RDW 14.7 MPV 8.4 Neutrophils % 77.6 Lymphocytes % 9.4 D Monocytes % 7.6 Eosinophils % 4.5 Basophils % 0.9 - Medications Given in the ED: ED Medications Discontinued Medications Generic Name Dose Route Start Last Admin Trade Name Freq PRN Reason Stop Dose Admin Acetaminophen 1,000 mg 11/02/17 06:28 11/02/17 06:46 Ofirmev Injection - IVPB 11/02/17 06:29 1,000 mg ONCE ONE Administration Sodium Chloride 1,000 mls @ 1,000 mls/hr 11/02/17 05:30 11/02/17 06:45 Normal Saline - IV 11/02/17 06:29 1,000 mls/hr ASDIR STA Administration Medical Decision Making - Medical Decision Making 11/02/17 07:51 Patient received from ROUTE AIDE Cuauhtemoc. Briefly, this is a 47-year-old female 2 days s/ p gastric sleeve with Dr. Khan presenting with right arm pain. V/s notable for T 100.0 orally, P 121, SpO2 93%. CXR with increased lung markings at bases compatible with atelectasis (vs. early infiltrate). U/s RUE to r/o DVT is pending. 11/02/17 10:16 U/s neg for DVT, neg for superficial thrombophlebitis. Patient's arm pain improved. Low grade temp/tachycardia/mild hypoxia resolved. Suspect secondary to post- operative atelectasis. Patient re-examined and feeling well. Examination of arm is normal. Dr. Khan paged to discuss case. 11/02/17 11:[address] Khan and cleared for discharge. *DC/Admit/Observation/Transfer Diagnosis at time of Disposition: Pain in right arm, Atelectasis, Post-operative state - Discharge Dispostion Disposition: HOME Condition at time of disposition: Stable - Referrals Referrals: Cuauhtemoc Light MD [Primary Care Provider] - 1 week Tani Khan MD [Staff Physician] - - Patient Instructions Printed Discharge Instructions: DI for Arm Pain Additional Instructions: -Do deep breathing and coughing to prevent post-operative pneumonia -Follow up with Dr. Light and Dr. Khan as needed -Return for worsening arm pain, fever, redness of the arm, or any other concerning symptoms - Post Discharge Activity
--- NOTE | 2017-11-02 09:56 | EKG ---
Test Reason : Blood Pressure : / mmHG Vent. Rate : 107 BPM Atrial Rate : 107 BPM P-R Int : 158 ms QRS Dur : 078 ms QT Int : 334 ms P-R-T Axes : 058 039 049 degrees QTc Int : 445 ms SINUS TACHYCARDIA POSSIBLE LEFT ATRIAL ENLARGEMENT BORDERLINE ECG WHEN COMPARED WITH ECG OF 18-AUG-2017 08:24, VENT. RATE HAS INCREASED BY 36 BPM Confirmed by BRAN BOURGEOIS MD ([id number]) on 11/02/2017 9:55:54 AM Referred By: Confirmed By:BRAN BOURGEOIS MD
[2017-11-02 10:06] VITALS: BP 121/78; PULSE 88
--- NOTE | 2017-11-02 11:55 | CONSULT ---
Consult Consult Specialty:: Surgery Reason for Consultation:: Right arm pain and redness - History of Present Illness Chief Complaint: Presented for pain and redness of right forearm. Had recent IV in that arm for surgery. No numbness/tingling. Full sensation and motor function - History Source History Provided By: Patient Limitations to Obtaining History: No Limitations - Past Medical History ...LMP: 08/17/12 - Past Surgical History Past Surgical History: Yes: Bariatric Surgery (Sleeve gastrectomy), Cholecystectomy, , Hysterectomy - Alcohol/Substance Use Hx Alcohol Use: No - Smoking History Smoking history: Unknown if ever smoked Have you smoked in the past 12 months: No Aproximately how many cigarettes per day: 0 If you are a former smoker, when did you quit?: 1999 Home Medications - Allergies Allergies/Adverse Reactions: Allergies Allergy/AdvReac Type Severity Reaction Status Date / Time aspirin Allergy "hives,tingling,itchy Verified 11/02/17 03:59 palms" ibuprofen Allergy "generalized Verified 11/02/17 03:59 itchyness-inside" - Home Medications Home Medications: Ambulatory Orders Famotidine [Pepcid] 20 mg PO BID #60 tablet 10/31/17 Oxycodone HCl/Acetaminophen [Percocet 5-325 mg Tablet] 1 - 2 tab PO Q6H #28 tab MDD 4 10/31/17 Family Disease History - Family Disease History Family History: Unremarkable Review of Systems - Review of Systems Constitutional: denies: Chills, Fever Neck: reports: No Symptoms Cardiovascular: reports: No Symptoms Respiratory: reports: No Symptoms Gastrointestinal: denies: Abdominal Pain Musculoskeletal: reports: Other (Right arm pain and redness) Neurological: reports: No Symptoms Pain Intensity: 2 Physical Exam Vital Signs: Vital Signs Temperature 98.5 F 11/02/17 07:07 Pulse Rate 88 11/02/17 10:04 Respiratory Rate 18 11/02/17 10:04 Blood Pressure 121/78 11/02/17 10:04 O2 Sat by Pulse Oximetry (%) 96 11/02/17 10:04 Constitutional: Yes: Calm Neck: Yes: WNL Cardiovascular: Yes: WNL Respiratory: Yes: Diminished Gastrointestinal: Yes: Soft. No: Tenderness Extremities: Yes: Other (Right arm- no redness currently seen, no fluctuance, full motor function, no sensory deficit, mildly warm) Neurological: Yes: Alert, Oriented Labs: CBC, BMP 11/02/17 06:00 11/02/17 06:00 Imaging - Results Chest X-ray: Report Reviewed Ultrasound: Report Reviewed Problem List - Problems (1) Atelectasis Code(s): J98.11 - ATELECTASIS (2) Pain in right arm Code(s): M79.601 - PAIN IN RIGHT ARM Assessment/Plan No thrombus on imaging Likely reaction from recent IV Arm elevation Atelectasis on CXR Incentive spirometer No acute surgical intervention
== END 2017-11-02 12:20 | disposition home or self-care (01) ==
LOC: JER 03:17
PROC: 3E033NZ Introduction of Analgesics, Hypnotics, Sedatives into Peripheral Vein, Percutaneous Approach (ICD-10-PCS; principal; 2017-11-02)
PROC: 3E0337Z Introduction of Electrolytic and Water Balance Substance into Peripheral Vein, Percutaneous Approach (ICD-10-PCS; 2017-11-02)
DX: Z98.890 Other specified postprocedural states (principal); J98.11 Atelectasis
CPT/HCPCS: 36415; 71046-TC-FY; 80053; 81003; 82803; 83605; 84484; 85025; 85610; 85730; 87040; 87086; 93005; 93010; 93971; 99283-25; J0131; J7030

== ENCOUNTER 2018-05-21 06:01 | Inpatient (IN) | payer BC ==
[2018-05-14 12:34] VITALS: BMI 36.1
[2018-05-21] MEDS ORDERED: CEFAZOLIN 2 GM in DEXTROSE 5%-WATER - 50 ML IVPB ONE (06:25)
[2018-05-21] MEDS ORDERED: GABAPENTIN 300 MG CAPSULE (FP) PO ONE (06:25)
[2018-05-21] MEDS ORDERED: TRANEXAMIC ACID 1000 MG/10 ML VIAL IVPUSH ONE (06:25)
[2018-05-21] MEDS ORDERED: oxyCODONE HCL 10 MG SUSTAINED ACTING TABLET PO ONE (06:25)
[2018-05-21] MEDS ORDERED: PANTOPRAZOLE 40 MG TABLET (FP) PO ONE (06:26)
[2018-05-21] MEDS ORDERED: SODIUM CHLORIDE 0.9% P/F 10 ML VIAL IJ ONE (07:19)
[2018-05-21] MEDS ORDERED: ceFAZolin SODIUM 1 GM VIAL ONE ×2 (07:19→08:08)
[2018-05-21] MEDS ORDERED: MIDAZOLAM HCL 2 MG/2 ML SINGLE DOSE VIAL ONE ×5 (07:20→10:17)
[2018-05-21] MEDS ORDERED: LIDOCAINE HCL/PF 2% SDV 5ML VIAL ONE (07:20)
[2018-05-21] MEDS ORDERED: ROCURONIUM BROMIDE 50 MG/5 ML VIAL ONE (07:20)
[2018-05-21] MEDS ORDERED: ePHEDrine SULFATE 50 MG/1 ML AMPULE ONE (07:20)
[2018-05-21] MEDS ORDERED: PROPOFOL 20 ML ONE ×4 (07:20→09:55)
[2018-05-21] MEDS ORDERED: SUCCINYLCHOLINE CHLORIDE 200 MG/10 ML VIAL ONE (07:21)
[2018-05-21] MEDS ORDERED: LIDOCAINE 1% P/F 10 MG/ML VIAL ONE (07:25)
[2018-05-21] MEDS ORDERED: DEXAMETHASONE SOD PHOSPHATE/PF 10 MG/ML SDV ONE (07:25)
[2018-05-21] MEDS ORDERED: BUPIVACAINE HCL/PF (5 MG/ML) 30 ML VIAL IJ ONE (07:26)
--- NOTE | 2018-05-21 07:46 | HP ---
Admitting History and Physical - Admission Chief Complaint: right hip osteoarthritis x years History of Present Illness: 48 year old female presents in regard to her right hip. Long-standing history of right hip osteoarthritis. Patient complains of pain, limited range of motion , difficulty ambulating, and difficulty with activities of daily living. Patient has failed conservative treatment options including PO medications, activity modification, injections, and exercise programs. At this point, patient like to proceed with surgical intervention, right total hip arthroplasty MAKOplasty. History Source: Patient - Past Medical History ...LMP: 08/17/12 ...LMP Comment: S/P NAHEED 2012 ...: No - Past Surgical History Past Surgical History: Yes: Bariatric Surgery (Sleeve gastrectomy), Cholecystectomy, , Hysterectomy Additional Past Surgical History: See written history & physical. - Smoking History Smoking history: Former smoker Have you smoked in the past 12 months: No Aproximately how many cigarettes per day: 0 If you are a former smoker, when did you quit?: 1999 - Alcohol/Substance Use Hx Alcohol Use: No Home Medications - Allergies Allergies/Adverse Reactions: Allergies Allergy/AdvReac Type Severity Reaction Status Date / Time aspirin Allergy Severe "hives,tingling,itchy Verified 05/21/18 06:42 palms" ibuprofen Allergy Severe "generalized Verified 05/21/18 06:42 itchyness-inside" - Home Medications Home Medications: Ambulatory Orders Biotin 1 mg PO DAILY 05/10/18 Cholecalciferol (Vitamin D3) [Vitamin D] 2,000 unit PO DAILY 05/10/18 Multivitamin with Iron [Multivitamins with Iron] 1 each PO DAILY 05/10/18 Cyanocobalamin [Vitamin B12 -] 1,000 mcg PO DAILY 05/21/18 Review of Systems - Review of Systems Musculoskeletal: reports: Decreased ROM (right), Joint Pain (right) Physical Examination Vital Signs: Vital Signs Temperature 97.9 F 05/21/18 06:44 Pulse Rate 57 L 05/21/18 06:44 Respiratory Rate 16 05/21/18 06:44 Blood Pressure 118/67 05/21/18 06:44 O2 Sat by Pulse Oximetry (%) Constitutional: Yes: Well Nourished Eyes: Yes: Conjunctiva Clear HENT: Yes: Atraumatic Neck: Yes: Supple Cardiovascular: Yes: Regular Rate and Rhythm Respiratory: Yes: Regular Gastrointestinal: Yes: Soft ...Rectal Exam: Yes: Deferred Musculoskeletal: Yes: Joint Stiffness (right hip) Assessment/Plan 48 year old female presents in regard to her right hip. Long-standing history of right hip osteoarthritis. Patient complains of pain, limited range of motion , difficulty ambulating, and difficulty with activities of daily living. Patient has failed conservative treatment options including PO medications, activity modification, injections, and exercise programs. At this point, patient like to proceed with surgical intervention, right total hip arthroplasty MAKOplasty. Pros, cons, risks, benefits, and alternatives of a right total hip arthroplasty MAKOplasty were discussed with the patient at length. Patient confirms his understanding and consents to proceed with a right total hip arthroplasty MAKOplasty.
[2018-05-21] MEDS ORDERED: VANCOMYCIN 1,000 MG VIAL (RESTRICTED TO ID ONLY) ONE (08:08)
[2018-05-21] MEDS ORDERED: ROPIVICAINE 0.2%/MORPH PF/KETOROLAC - 51ML DISP.SYRINGE IA ONE (10:29)
[2018-05-21] MEDS ORDERED: KETOROLAC TROMETHAMINE 30 MG/1 ML VIAL ONE (11:26)
[2018-05-21] MEDS ORDERED: ACETAMINOPHEN INJECTION 100 ML IVPB ONE (11:26)
[2018-05-21] MEDS ORDERED: ONDANSETRON 4 MG/2 ML VIAL IVPUSH PRN (11:44)
[2018-05-21] MEDS ORDERED: MAG HYDROX/AL HYDROX/SIMETH 30 ML UNIT-DOSE CUP PO PRN (11:44)
[2018-05-21] MEDS ORDERED: MAGNESIUM HYDROX 2400MG/30ML ORAL SUSPENSION 30 ML CUP PO PRN (11:44)
[2018-05-21] MEDS ORDERED: LACTATED RINGERS SOLUTION 1,000 ML IV SCH ×2 (11:45→14:00)
[2018-05-21] MEDS ORDERED: CELECOXIB 200 MG CAPSULE PO ONE (11:47)
[2018-05-21] MEDS ORDERED: ACETAMINOPHEN 1000 MG/100 ML VIAL (NON FORMULARY) IVPB ONE (11:56)
[2018-05-21] MEDS: traMADol HCL 50 MG TABLET PO SCH ×2 (12:00→17:15)
[2018-05-21] MEDS: KETOROLAC TROMETHAMINE 30 MG/1 ML VIAL IVPUSH SCH ×2 (12:00→17:17)
[2018-05-21] MEDS ORDERED: oxyCODONE HCL 5 MG TABLET PO PRN (13:50)
[2018-05-21] MEDS: CEFAZOLIN 2 GM/D5W 2 GM/50 ML ML IVPB SCH (17:17)
--- NOTE | 2018-05-21 17:47 | OP ---
Operative Note - Note: Operative Date: 05/21/18 Pre-Operative Diagnosis: right hip OA Operation: right STORMY KEN Post-Operative Diagnosis: Same as Pre-op Surgeon: Maynor Duke Solar Panel Technician: Marva Marley Anesthesia: Spinal Estimated Blood Loss (mls): 200
[2018-05-21] MEDS ORDERED: DEXAMETHASONE SOD PHOSPHATE 10 MG/1 ML VIAL IVPB ONE (20:00)
[2018-05-21] MEDS: CELECOXIB 200 MG CAPSULE PO SCH (21:03)
[2018-05-21] MEDS: APIXABAN 2.5 MG TABLET PO SCH (21:03)
[2018-05-21] MEDS: SENNOSIDES/DOCUSATE COMBO (SENNA PLUS) TABLET (UD) PO SCH (21:03)
[2018-05-21] MEDS: ASCORBIC ACID 500 MG TABLET (FP) PO SCH (21:03)
[2018-05-21] MEDS: GABAPENTIN 300 MG CAPSULE (FP) PO SCH (21:03)
[2018-05-21] MEDS: oxyCODONE HCL 10 MG SUSTAINED ACTING TABLET PO SCH (21:04)
[2018-05-22] MEDS: KETOROLAC TROMETHAMINE 30 MG/1 ML VIAL IVPUSH SCH ×2 (00:28→06:02)
[2018-05-22] MEDS: CEFAZOLIN 2 GM/D5W 2 GM/50 ML ML IVPB SCH (01:30)
[2018-05-22] MEDS: traMADol HCL 50 MG TABLET PO SCH ×4 (06:02→18:33)
[2018-05-22 08:09] LABS: HEMATOCRIT 35.2 % (32.4-45.2); HEMOGLOBIN 12.1 GM/dl (10.7-15.3); MCH 29.4 pg (25.7-33.7); MCHC 34.5 g/dl (32.0-36.0); MEAN CELL VOLUME 85.3 fl (80-96); MEAN PLT VOLUME 9.7 fl (7.5-11.1); PLATELET COUNT 231 K/MM3 (134-434); RBC 4.12 M/mm3 (3.60-5.2); RDW 13.3 % (11.6-15.6); WHITE BLOOD COUNT 11.7 K/mm3 (4.0-10.8)
[2018-05-22 08:11] LABS: ANION GAP 7 MMOL/L (8-16); BLOOD UREA NITROGEN 14 mg/dl (7-18); CALCIUM 8.7 mg/dl (8.5-10); CHLORIDE 105 mmol/L (98-107); CO2 23 mmol/L (21-32); CREATININE 0.5 mg/dl (0.55-1.3); GLUCOSE,RANDOM 149 mg/dl (74-106); POTASSIUM 4.2 mmol/L (3.5-5.1); SODIUM 135 mmol/L (136-145)
[2018-05-22] MEDS: oxyCODONE HCL 5 MG TABLET PO PRN ×2 (08:30→14:37)
[2018-05-22] MEDS: GABAPENTIN 300 MG CAPSULE (FP) PO SCH ×2 (10:42→22:09)
[2018-05-22] MEDS: oxyCODONE HCL 10 MG SUSTAINED ACTING TABLET PO SCH ×2 (10:42→22:10)
[2018-05-22] MEDS: ASCORBIC ACID 500 MG TABLET (FP) PO SCH ×2 (10:42→22:09)
[2018-05-22] MEDS: PANTOPRAZOLE 40 MG TABLET (FP) PO SCH (10:42)
[2018-05-22] MEDS: APIXABAN 2.5 MG TABLET PO SCH ×2 (10:42→22:09)
[2018-05-22] MEDS: SENNOSIDES/DOCUSATE COMBO (SENNA PLUS) TABLET (UD) PO SCH ×2 (10:42→22:09)
[2018-05-22] MEDS: MULTIVITAMINS (DAILY MVI) TABLET (FP) PO SCH (10:42)
[2018-05-22] MEDS: CELECOXIB 200 MG CAPSULE PO SCH ×2 (10:43→22:09)
--- NOTE | 2018-05-22 14:42 | PN ---
Progress Note (short form) - Note Progress Note: 48F POD1 s/p R THR under spinal anesthetic and peripheral nerve block doing well. Pt states that pain is well controlled and reports no anesthetic complications. AVSS. Motor and sensory function intact in bilateral lower extremities.
--- NOTE | 2018-05-22 18:55 | PN ---
Progress Note (short form) - Note Progress Note: Pt seen and examined Monday. Doing well. AVSS Laboratory Tests 05/22/18 05/22/18 05/23/18 07:14 07:14 07:01 WBC 11.7 H 7.7 Hgb 12.1 11.0 Hct 35.2 33.3 Plt Count 231 203 Sodium 135 L Potassium 4.2 Chloride 105 Carbon Dioxide 23 Anion Gap 7 L BUN 14 Creat Clearance w eGFR 131.69 Random Glucose 149 H Calcium 8.7 Gen: NAD RLE: c/d/i, NVID A/P POD#1 s/p R KEN PT/OOB D/C home Monday
[2018-05-23] MEDS: traMADol HCL 50 MG TABLET PO SCH ×3 (00:31→12:07)
[2018-05-23 06:32] VITALS: BP 110/62; PULSE 73; TEMP 98.1
[2018-05-23 07:07] LABS: HEMATOCRIT 33.3 % (32.4-45.2); MCH 28.3 pg (25.7-33.7); MCHC 33.1 g/dl (32.0-36.0); MEAN CELL VOLUME 85.5 fl (80-96); PLATELET COUNT 203 K/MM3 (134-434); RBC 3.89 M/mm3 (3.60-5.2); WHITE BLOOD COUNT 7.7 K/mm3 (4.0-10.8)
[2018-05-23] MEDS: MULTIVITAMINS (DAILY MVI) TABLET (FP) PO SCH (09:16)
[2018-05-23] MEDS: oxyCODONE HCL 10 MG SUSTAINED ACTING TABLET PO SCH (09:16)
[2018-05-23] MEDS: PANTOPRAZOLE 40 MG TABLET (FP) PO SCH (09:17)
[2018-05-23] MEDS: ASCORBIC ACID 500 MG TABLET (FP) PO SCH (09:17)
[2018-05-23] MEDS: CELECOXIB 200 MG CAPSULE PO SCH (09:19)
[2018-05-23] MEDS: GABAPENTIN 300 MG CAPSULE (FP) PO SCH (09:19)
[2018-05-23] MEDS: APIXABAN 2.5 MG TABLET PO SCH (09:20)
[2018-05-23] MEDS: SENNOSIDES/DOCUSATE COMBO (SENNA PLUS) TABLET (UD) PO SCH (09:20)
--- NOTE | 2018-05-23 11:03 | DS ---
Physical Examination Vital Signs: Vital Signs Temperature 98.1 F 05/23/18 06:30 Pulse Rate 73 05/23/18 06:30 Respiratory Rate 19 05/23/18 06:30 Blood Pressure 110/62 05/23/18 06:30 O2 Sat by Pulse Oximetry (%) 95 05/23/18 06:30 Labs: CBC, BMP 05/23/18 07:01 05/22/18 07:14 Discharge Summary Reason For Visit: RIGHT HIP OSTEOARTHRITIS Current Active Problems Osteoarthritis of right hip (Acute) Procedures: Principal: Right STORMY KEN Hospital Course: Admitted for elective surgery. Procedure performed without complications. Pt received postoperative antibiotic prophylaxis and DVT ppx. Ambulated with physical therapy. Stable for discharge home with outpatient followup. Condition: Stable - Instructions Diet, Activity, Other Instructions: Dr Duke - Hip Replacement Instructions Keep the Aquacel dressing on until removed by Dr. Duke in 10-14 days - it is antibacterial and waterproof and you can shower with it on. Call the office for a follow-up appointment with Dr. Duke in 10-14 days. ~ Take ELIQUIS 2.5mg twice daily for 35 days to prevent blood clots in your legs. Take one Pantoprazole 40mg daily for 6 weeks to protect against heartburn and ulcers. Take Cephalexin (antibiotic) 3x/day for 10 days to help prevent skin infection. Take a multivitamin, stool softener and extra Vitamin C supplement daily. For pain: *Mild pain (1-3/10): Take 1 Tramadol tablet every 4 hours as needed. Moderate pain (4-6/10): Take 1 Tramadol tablet and 1 Percocet tablet every 4 hours as needed. Severe pain (7-10/10): Take 1 Tramadol tablet and 2 Percocet tablets every 4 hours as needed. Activity: You can put as much weight on the operative leg as you want. For the first 6 weeks, all you need to do is walk around the house, go up/down stairs, and sit down/get up. After 6 weeks when everything is healed (and bone has grown into the implant) you will be sent for more intensive outpatient physical therapy. Always use a walker or cane for balance and to prevent falls. Expect to see swelling / bruising from the operative site all the way down to your toes. Wear the Compression stocking on the operative side during the day to minimize how much swelling there is in your foot/ankle. Don't wear the stocking at night. You don't have to wear the stocking on the other side. Disposition: VNS/HOME HEALTH CARE - Home Medications Comprehensive Discharge Medication List: Ambulatory Orders Biotin 1 mg PO DAILY 05/10/18 Cholecalciferol (Vitamin D3) [Vitamin D3] 2,000 unit PO DAILY 05/10/18 Multivitamin with Iron [Multivitamins with Iron] 1 each PO DAILY 05/10/18 Cyanocobalamin [Vitamin B12 -] 1,000 mcg PO DAILY 05/21/18 Apixaban [Eliquis -] 2.5 mg PO BID #67 tablet 05/23/18 Ascorbic Acid [Vitamin C -] 500 mg PO BID tablet 05/23/18 Celecoxib [CeleBREX -] 200 mg PO BID capsule 05/23/18 Cephalexin Monohydrate [Keflex -] 500 mg PO TID #30 capsule 05/23/18 Oxycodone HCl/Acetaminophen [Percocet 5-325 mg Tablet] 1 - 2 tab PO Q4H PRN #60 tablet MDD 10 05/23/18 Pantoprazole Sodium [Protonix -] 40 mg PO DAILY #40 tablet.ec 05/23/18 Sennosides/Docusate Sodium [Pericolace -] 2 tablet PO BID tablet 05/23/18 traMADol HCL [Ultram -] 50 mg PO Q4H PRN #42 tablet MDD 6 05/23/18
--- NOTE | 2018-05-23 15:42 | PATH ---
Surgical Pathology Report Patient Name: NICOLA LANDERS Med. Rec. #: [id number] /Age/Gender: 1970 (Age: 48) / F Account: [id number] Location: [facility] MED-SURG Taken: 05/21/2018 Received: 05/21/2018 Reported: 05/23/2018 Physicians: Maynor Duke M.D. Specimen(s) Received RIGHT FEMORAL HEAD Clinical History Right hip osteoarthritis Final Diagnosis BONE, FEMORAL HEAD, RIGHT, TOTAL HIP REPLACEMENT MAKOPASTY: BONE WITH DEGENERATIVE JOINT DISEASE. Electronically Signed Krysten Canales M.D. Gross Description Received in formalin, labeled "right femoral head," is a 4.3 x 4.3 x 3.5 cm. femoral head with a 1.3 cm in length portion of femoral neck attached. The margin of resection is smooth. No areas of eburnation are identified. The articular surface is vo-yellow and focally granular. The underlying trabecular bone is yellow and hard. A sales representative business courses section is submitted in one cassette, following decalcification. /05/22/2018 [facility]05/22/2018
--- NOTE | 2018-06-07 11:25 | SPEC ---
DATE OF OPERATION: 05/21/2018 PREOPERATIVE DIAGNOSIS: Right hip osteoarthritis. POSTOPERATIVE DIAGNOSIS: Right hip osteoarthritis. PROCEDURE: Right total hip replacement with MAKOplasty robotic navigation. SURGEON: Germán Kam MD STEAM CONDITIONER OPERATOR: KUSHAL Hopper. ANESTHESIA: Spinal plus sedation. ESTIMATED BLOOD LOSS: 200 mL. COMPLICATIONS: None. DISPOSITION: The patient was transferred to the PACU in stable condition. IMPLANTS USED: [place] Accolade size 6 femoral component, [place] Trident 52-mm acetabular component, MDM bipolar head ball with inner 28 + 8 mm femoral head. INDICATIONS: This is a 48-year-old female who presented to the office complaining of severe right hip pain. She was seen and examined by Dr. Kam and diagnosed with severe right hip osteoarthritis. The patient was initially treated non-operatively with injections, medications, and physical therapy, but continued to have severe pain and ambulatory dysfunction. She was therefore indicated for a right total hip replacement. The risks, benefits, and alternatives to the procedure were explained to the patient in great detail, and she elected to proceed with the surgery. DESCRIPTION OF PROCEDURE: On the day of surgery, the patient was taken to the operating room and placed on the OR table. Spinal anesthesia was administered by the anesthesiologist. The patient was then positioned in the lateral decubitus position on the table and all bony prominences were padded. An axillary roll was placed. The operative hip was then prepped and draped in the usual sterile fashion and intravenous antibiotics were given for infection prophylaxis. A surgical time-out was then performed with the team, and the patients identity, procedure, side, availability of implants, and the administration of antibiotics were confirmed. An approximately 15-cm longitudinal incision was made through the skin centered on the greater trochanter of the hip. This dissection was carried down through the subcutaneous tissues to the deep fascia. This fascia was then incised and a Cobra was placed around the inferior femoral neck. Electrocautery was used to reflect the anterior 40% of the gluteus medius and minimus starting at the musculotendinous junction and leaving a cuff for closure. This was reflected to reveal the capsule of the hip joint. An anterior capsulectomy was performed and the femoral head and neck were visualized. Grade 4 changes were noted diffusely throughout the joint. At this point, three small stab incisions were made superior to the main incision along the iliac crest. Three self-drilling Steinmann pins were then placed and the Hitlantis pelvic array was attached. Reference points on the limb were then entered into the robotic device and the limb length deficiency, offset, and femoral neck resection level were then calculated by the software. The hip was then dislocated with traction and external rotation. An oscillating saw was used to make the femoral neck cut at the level previously templated, and the femoral head was removed. Attention was then turned to the acetabulum. Retractors were then placed around the acetabulum and the labrum was removed. An acetabular checkpoint pin and the Hitlantis software were used to register the contours of the acetabulum. The acetabulum was then reamed in a single stage to the preoperatively templated size using the Jace robotic arm. The appropriately sized cup was then impacted and had solid fixation as well as the preset inclination and version of 40 and 20 degrees, respectively. A polyethylene liner was then placed in the cup. Attention was then turned back to the femur, which was externally rotated for improved visualization. A femoral neck elevator was used to present the femoral neck cut, a box osteotome was used to enter the femoral canal, and a canal finder was used to go down the femoral shaft. The Jace broaches were used sequentially until the optimal scratch fit was achieved. This correlated with the preoperatively templated size. From here, several different offset head and neck configurations were tested until excellent stability and length were obtained. These measurements were quantified using the Hitlantis software. All trial components were then removed, the femur was copiously irrigated, and the final components were placed. Leg length and stability were checked again and found to be excellent. Irrigation was performed again. Wound closure was started by repairing the abductor muscles with a no. 2 FiberWire stitch in a Krackow configuration passed through bone tunnels in the greater trochanter and tied over a bony bridge. This repair was then reinforced with a 0 V-Loc 180 barbed suture. Next, no. 1 Polysorb and 0 V-Loc 180 were used to close the fascia. The deep subcutaneous tissue was closed with no. 1 Polysorb sutures, and 2-0 Polysorb was used for the superficial subcutaneous tissue. The skin was closed using both 3-0 V-Loc 90 suture in a running subcuticular fashion and SwiftSet skin adhesive. The Jace array and pins were removed from the iliac crest and the stab incision sites were irrigated and closed with 4-0 Polysorb sutures and SwiftSet skin adhesive. Once this was completed, a sterile dressing was applied. The patient was then awakened and taken to the PACU in stable condition. GERMÁN KAM M.D. [id number]
== END 2018-05-23 12:24 | disposition home health service (06) | DRG 470 ==
LOC: FM/S 06:01
PROVIDERS: ADMIT Student in an Organized Health Care Education/Training Program; ATTEND Student in an Organized Health Care Education/Training Program
PROC: 8E0W0CZ Robotic Assisted Procedure of Trunk Region, Open Approach (ICD-10-PCS; 2018-05-21)
PROC: 0SR90JA Replacement of Right Hip Joint with Synthetic Substitute, Uncemented, Open Approach (ICD-10-PCS; principal; 2018-05-21 09:13)
DX: M16.11 Unilateral primary osteoarthritis, right hip (principal)
CPT/HCPCS: 36415; 73502-TC-RT-FY; 80048; 85027; 86803; 87389; 88305-TC; 88311-TC; 94760; 97116-GP; 97163-GP; J0131; J1100

== ENCOUNTER 2022-04-13 04:24 | Day surgery (SDC) | payer BC ==
[2022-04-11 14:03] VITALS: BMI 35.1
[2022-04-13 08:35] VITALS: TEMP 98
[2022-04-13 09:05] VITALS: BP 125/71; PULSE 59; RESP 17
== END 2022-04-13 09:18 | disposition home or self-care (01) ==
LOC: JASU-ENDO 04:24
PROVIDERS: ATTEND Internal Medicine Gastroenterology
PROC: 0DBL8ZX Excision of Transverse Colon, Via Natural or Artificial Opening Endoscopic, Diagnostic (ICD-10-PCS; principal; 2022-04-13 08:00)
DX: Z12.11 Encounter for screening for malignant neoplasm of colon (principal); D12.3 Benign neoplasm of transverse colon; K57.30 Diverticulosis of large intestine without perforation or abscess without bleeding
CPT/HCPCS: 88305-TC

== ENCOUNTER 2023-11-15 20:17 | Emergency (ER) | payer BC ==
[2023-11-15 20:31] VITALS: BP 124/82; PULSE 76; RESP 18; TEMP 98.5; BMI 36.6
== END 2023-11-15 21:08 | disposition home or self-care (01) ==
LOC: FER 20:17
DX: R07.89 Other chest pain (principal); W01.198A Fall on same level from slipping, tripping and stumbling with subsequent striking against other object, initial encounter
CPT/HCPCS: 71046-TC-FY; 71101-TC-LT-FY; 99283-25